=== PATIENT | female | born 1970 | race Caucasian/White ===

== ENCOUNTER 2016-11-21 21:29 | Emergency (ER) | payer MEDICAID ==
[2016-11-21] MEDS ORDERED: KETOROLAC 30 MG/ML VIAL IM ONE (21:43)
--- NOTE | 2016-11-21 21:47 | Emergency Department Record ---
History of Present Illness - General Chief complaint: Pain Stated complaint: LEFT HIP PAIN Time Seen by Provider: 11/21/16 21:37 Source: Patient Mode of Arrival: Ambulatory Limitations: No limitations - History of Present Illness Initial comments: The patient is here due to L hip pain for about 10 days. She has a L hip replacement from about 11 years ago and has not had any issues with it. Now about 10 days ago it started hurting. The pain then did resolve after a few days. Now 2 days ago the pain returned. It increases with weight bearing and ROM. The patient denies any leg numbness, or weakness and also denies any trauma or fall. She believes she may be having an issue with her old replacement and would like an xray. MD Complaint: Joint pain Onset/Timin -: Days(s) Location: Left, Other History of Same: No Radiation: None Severity scale (1-10): 4 Quality: Stabbing Consistency: Constant, Getting worse Improves with: Movement Worsens with: Palpation, Other - Related Data Previous Rx's Medication Instructions Recorded Naproxen [Naprosyn] 500 mg PO BID #20 tablet. 11/21/16 Allergies Allergy/AdvReac Type Severity Reaction Status Date / Time No Known Drug Allergies Allergy Verified 02/24/16 11:21 Travel Screening - Travel/Exposure Within Last 30 Days Have you traveled within the last 30 days?: No Review of Systems Constitutional: Denies: Chills, Fever Past Medical History - SOCIAL HISTORY Smoking Status: Never smoker Alcohol Use: None Drug Use: None - RESPIRATORY Hx Respiratory Disorders: No - CARDIOVASCULAR Hx Cardio Disorders: No - NEURO Hx Neuro Disorders: No - GI Hx GI Disorders: No - ENDOCRINE Hx Endocrine Disorders: No - MUSCULOSKELETAL Hx Musculoskeletal Disorders: No - PSYCH Hx Psych Problems: No - HEMATOLOGY/ONCOLOGY Hx Hematology/Oncology Disorders: No Family Medical History Any Significant Family History?: Yes Physical Exam - General General Appearance: Alert, Oriented x3, Cooperative, No acute distress - Head Head exam: Atraumatic, Normocephalic, Normal inspection - Eye Eye exam: Normal appearance - Respiratory Respiratory exam: Normal lung sounds bilaterally. negative: Respiratory distress - Cardiovascular Cardiovascular Exam: Regular rate, Normal rhythm, Normal heart sounds - Extremities Extremities exam: Normal inspection (There is a well healed L hip replacement scar with no swelling, bruising, or erythema present.), Normal capillary refill , Tenderness (There is mild tenderness to the L hip on deep palpation.). negative: Full ROM (There is decreased ROM of the L hip due to pain. ), Joint swelling - Neurological Neurological exam: Alert. negative: Motor sensory deficit - Skin Skin exam: negative: Rash Course Vital Signs 11/21/16 21:33 Temperature 98.3 F Pulse Rate [ 94 H Pulse Ox Probe] Respiratory 20 Rate Blood Pressure 128/81 [Left Arm] Pulse Ox 97 - Reevaluation(s) Reevaluation #1: I did discuss the xray findings with the patient and the need for F/U with Ortho. The patient states her hip replacement prosthesis is on recall also which may be why she is now having issues with it. She is to limit her walking and use her cane when needed and see an Ortho doc ERIC. 11/21/16 22:26 Medical Decision Making - Data Complexity MDM Data: X-Ray Ordered and/or Reviewed - Radiology Data Radiology results: Report reviewed (L Hip: No definite acute changes to the hip joint. Greater Troch. fragment fx prob old.with proximal fx fragment displaced 9 mm.) Disposition Disposition: Discharge Clinical Impression: Hip pain, left Disposition: Home, Self-Care Condition: (1) Good Instructions: Hip Pain (ED) Additional Instructions: Please use Naprosyn for pain and use your cane at home for walking. Please see an Orthopedic doctor ERIC for recheck of the hip and further evaluation. Return to the ER if worse. Prescriptions: Naproxen [Naprosyn] 500 mg PO BID #20 tablet. Referrals: [facility] [Provider Group] LAURA FITZPATRICK [DOCTOR OF OSTEOPATH] - Forms: Patient Portal Access Time of Disposition: 22:26 Quality - Quality Measures Quality Measures: N/A - Blood Pressure Screening View Details: Yes Does Patient Have Any of the Following: No Blood Pressure Classification: Pre-Hypertensive BP Reading Systolic Measurement: 128 Diastolic Measurement: 81 Screening for High Blood Pressure: < Pre-Hypertensive BP, F/U Documented > [ G8950] Pre-Hypertensive Follow-up Interventions: Referral to alternative/primary care provider.
--- NOTE | 2016-11-23 07:34 | RADIOLOGY REPORT ---
EXAM: LEFT HIP HISTORY: ACUTE LEFT HIP PAIN FOR FIVE DAYS. NO KNOWN TRAUMA. PRIOR LEFT HIP ARTHROPLASTY. TECHNIQUE: An AP view of the pelvis is obtained as well as AP and frog leg lateral views of the left hip. Comparison: None. Encounter: Initial. FINDINGS: Left hip arthroplasty changes are present. 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 Given lack of prior examination it is indeterminate whether positioning of the prosthetic acetabular cup is stable. To the extent visualized, the prosthetic components appear well seated. There is evidence of a displaced greater trochanter fracture. The smaller proximal fracture fragment measures 1.9 x 2.6 cm. This is age indeterminate. No other evidence of acute fracture nor dislocation. There are mild degenerative changes of the right hip. IMPRESSION: LEFT HIP ARTHROPLASTY CHANGES, DISCUSSED ABOVE. DISPLACED GREATER TROCHANTER FRACTURE WITH THE PROXIMAL FRACTURE FRAGMENT SUPERIORLY DISPLACED BY 9 MM. THIS FRACTURE IS AGE INDETERMINATE THOUGH PROBABLY CHRONIC. NO OTHER EVIDENCE OF ACUTE FRACTURE NOR DISLOCATION. MILD DEGENERATIVE CHANGES OF THE RIGHT HIP. JOB NUMBER: [id number] [facility]
== END 2016-11-21 22:33 | disposition home or self-care (01) ==
LOC: ER 21:29
DX: M25.552 Pain in left hip (principal); Z96.642 Presence of left artificial hip joint
CPT/HCPCS: 99283 ×2; 96372; 73502; J1885

== ENCOUNTER 2017-07-06 11:14 | Emergency (ER) | payer MEDICAID ==
--- NOTE | 2017-07-06 11:36 | Emergency Department Record ---
History of Present Illness - General Chief complaint: Pain Stated complaint: LEFT HIP PAIN Time Seen by Provider: 07/06/17 11:21 Source: Patient Mode of Arrival: Ambulatory Limitations: No limitations - History of Present Illness Initial comments: The patient has a hx of chronic L hip pain for months and years and has had a RODNEY in the past that has now been recalled. She now is having increased pain and limping over the last few days to the L hip. There has been no reported fever, chills, trauma, weakness, or injury. The patient does have an appointment with an Orthopedic doctor in September at [facility] but would like to have an xray and a Motrin 800 script today. MD Complaint: Joint pain Onset/Timin -: Days(s) Location: Left, Other History of Same: No Radiation: Distal Severity scale (1-10): 6 Quality: Aching, Sharp Consistency: Constant Improves with: Nothing Worsens with: Walking, Weight bearing Associated Symptoms: Denies other symptoms - Related Data Previous Rx's Medication Instructions Recorded Ibuprofen [Motrin] 800 mg PO TID PRN #20 tab 07/06/17 Allergies Allergy/AdvReac Type Severity Reaction Status Date / Time No Known Drug Allergies Allergy Unverified 03/14/17 13:12 Travel Screening - Travel/Exposure Within Last 30 Days Have you traveled within the last 30 days?: No Review of Systems Constitutional: Denies: Chills, Fever Past Medical History - SOCIAL HISTORY Smoking Status: Never smoker Alcohol Use: None Drug Use: None - RESPIRATORY Hx Respiratory Disorders: No - CARDIOVASCULAR Hx Cardio Disorders: No - NEURO Hx Neuro Disorders: No - GI Hx GI Disorders: No - Hx Genitourinary Disorders: No - ENDOCRINE Hx Endocrine Disorders: No - MUSCULOSKELETAL Hx Musculoskeletal Disorders: No - PSYCH Hx Psych Problems: No - HEMATOLOGY/ONCOLOGY Hx Hematology/Oncology Disorders: No Family Medical History Any Significant Family History?: No Physical Exam - General General Appearance: Alert, Oriented x3, Cooperative, No acute distress - Head Head exam: Atraumatic, Normocephalic, Normal inspection - Eye Eye exam: Normal appearance, PERRL - Respiratory Respiratory exam: Normal lung sounds bilaterally. negative: Respiratory distress - Cardiovascular Cardiovascular Exam: Regular rate, Normal rhythm, Normal heart sounds - GI/Abdominal GI/Abdominal exam: Soft, Normal bowel sounds. negative: Tenderness - Extremities Extremities exam: Normal inspection, Normal capillary refill, Other (The L lower leg is NVI with normal distal pulses.). negative: Full ROM (There is decreased full ROM of the L hip due to mild pain.), Joint swelling, Tenderness Course Vital Signs 07/06/17 11:17 Temperature 97.9 F Pulse Rate 72 Respiratory 20 Rate Blood Pressure 125/83 Pulse Ox 99 - Reevaluation(s) Reevaluation #1: I explained the xray results to the patient and the need for F/U. 07/06/17 12:16 Medical Decision Making - Data Complexity MDM Data: X-Ray Ordered and/or Reviewed - Radiology Data Radiology results: Report reviewed (L Hip: Possible increased acetabular sclerosis and increased L hip greater trochanter proximal fx.) Disposition Disposition: Discharge Clinical Impression: Hip pain, left Disposition: Home, Self-Care Condition: (2) Stable Instructions: Hip Pain (ED) Additional Instructions: Please take the Motrin for pain and use your home crutches if needed. Please try to have your Orthopedic appointment moved up if possible. Return to the ER for any worsening symptoms. Prescriptions: Ibuprofen [Motrin] 800 mg PO TID PRN #20 tab PRN Reason: Pain Forms: Patient Portal Access Time of Disposition: 12:14 Quality - Quality Measures Quality Measures: N/A - Blood Pressure Screening View Details: Yes Does Patient Have Any of the Following: No Blood Pressure Classification: Pre-Hypertensive BP Reading Systolic Measurement: 125 Diastolic Measurement: 83 Screening for High Blood Pressure: < Pre-Hypertensive BP, F/U Documented > [ G8950] Pre-Hypertensive Follow-up Interventions: Referral to alternative/primary care provider.
--- NOTE | 2017-07-07 11:39 | RADIOLOGY REPORT ---
EXAM: LEFT HIP WITH AP PELVIS HISTORY: HISTORY OF LEFT RODNEY. INCREASING PAIN THE LAST FEW DAYS. TECHNIQUE: AP view of the pelvis and AP and lateral views of the left hip were obtained. Comparison: Left hip series 11/21/16. FINDINGS: The patient is again seen to be postop left RODNEY. 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 Previously described displaced greater trochanter fracture is again seen with greater superior displacement of the fracture fragments. In addition to the protrusio acetabuli the acetabular component appears located somewhat superiorly relative to the [place] acetabular socket, but this was the case previously as well. Comparison with any earlier studies would be useful to see if there has been migration at some point of the acetabular components superiorly as well. There has probably been a fracture of the central acetabulum with some healing in the interval with greater spurring in this region since 11/21/16. As visualized today no definite acute fracture or dislocation of the left hip evident. IMPRESSION: 1. POSTOP LEFT RODNEY. 2. 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 NO AKIRA DISLOCATION OF THE LEFT HIP EVIDENT. 3. PRIOR DISPLACED GREATER TROCHANTER FRACTURE FRAGMENT AGAIN SEEN WITH SLIGHTLY GREATER SUPERIOR DISPLACEMENT COMPARED TO THE PRIOR STUDY. 4. SOME DEFORMITY OF THE CENTRAL ACETABULUM LIKELY REPRESENTING A NONACUTE FRACTURE WITH SOME HEALING WHICH IS MORE PRONOUNCED THAN ON 11/21/16. A DEFINITE ACUTE FRACTURE LINE IS NOT SEEN ALTHOUGH A SUBTLE FRACTURE WOULD BE DIFFICULT TO EXCLUDE CENTRALLY IN THE ACETABULUM PARTICULARLY WITH THE OVERLYING METALLIC HIP ARTHROPLASTY PRESENT. JOB NUMBER: [id number] [facility]
== END 2017-07-06 12:26 | disposition home or self-care (01) ==
LOC: ER 11:14
DX: G89.29 Other chronic pain (principal); M25.552 Pain in left hip; Z96.642 Presence of left artificial hip joint
CPT/HCPCS: 99283

== ENCOUNTER 2018-08-21 12:06 | Emergency (ER) | payer MEDICAID ==
--- NOTE | 2018-08-21 12:29 | Emergency Department Record ---
History of Present Illness - General Chief complaint: ENT Stated complaint: EAR PAIN RT Time Seen by Provider: 08/21/18 12:19 Source: Patient Mode of Arrival: Ambulatory Limitations: No limitations - History of Present Illness Initial comments: The patient is here due to a cough with colored sputum and also R ear wax impaction. The patient has a hx of cerumen impaction and did flush her R ear out after it became plugged last week. She did get a lot of wax out but still is unable to hear out of the R ear. MD complaint: Other Onset/Timin -: Days(s) Location: R ear Severity scale (1-10): 4 Quality: Aching Consistency: Constant Improves with: None Worsens with: None Associated Symptoms: Cough - Related Data Previous Rx's Medication Instructions Recorded Azithromycin [Zithromax] 250 mg PO ASDIR #6 tab 08/21/18 Allergies Allergy/AdvReac Type Severity Reaction Status Date / Time No Known Drug Allergies Allergy Unverified 08/10/18 11:33 Travel Screening - Travel/Exposure Within Last 30 Days Have you traveled within the last 30 days?: No Review of Systems Constitutional: Denies: Chills, Fever Eyes: Denies: Eye discharge ENT: Denies: Congestion Respiratory: Reports: Cough. Denies: Dyspnea Past Medical History - SOCIAL HISTORY Smoking Status: Never smoker - RESPIRATORY Hx Respiratory Disorders: No - CARDIOVASCULAR Hx Cardio Disorders: No - NEURO Hx Neuro Disorders: No - GI Hx GI Disorders: No - Hx Genitourinary Disorders: No - ENDOCRINE Hx Endocrine Disorders: No - MUSCULOSKELETAL Hx Musculoskeletal Disorders: No - PSYCH Hx Psych Problems: No - HEMATOLOGY/ONCOLOGY Hx Hematology/Oncology Disorders: No Family Medical History Any Significant Family History?: Yes Physical Exam - General General Appearance: Alert, Oriented x3, Cooperative, No acute distress - Head Head exam: Atraumatic, Normocephalic, Normal inspection - Eye Eye exam: Normal appearance, PERRL, EOMI - ENT ENT exam: negative: TM's normal bilaterally (The L TM is normal but the R TM is not visualized due to cerumen being impacted up against the R TM. There is no canal swelling, tenderness, erythema or edema.) Throat exam: Tonsillar erythema. negative: Normal inspection, Tonsillomegaly - Neck Neck exam: Normal inspection, Full ROM. negative: Lymphadenopathy, Tenderness - Respiratory Respiratory exam: Normal lung sounds bilaterally. negative: Respiratory distress - Cardiovascular Cardiovascular Exam: Regular rate, Normal rhythm, Normal heart sounds - GI/Abdominal GI/Abdominal exam: Soft, Normal bowel sounds. negative: Tenderness - Extremities Extremities exam: Normal inspection, Full ROM, Normal capillary refill. negative: Tenderness Course Vital Signs 08/21/18 12:09 Temperature 98.4 F Pulse Rate 108 H Respiratory 20 Rate Blood Pressure 138/83 Pulse Ox 98 - Reevaluation(s) Reevaluation #1: Due to the wax being right up against the R TM I did discuss the need for referral to ENT with the patient for wax removal. 08/21/18 12:34 Disposition Disposition: Discharge Clinical Impression: Bronchitis, Impacted cerumen of right ear Disposition: Home, Self-Care Condition: (2) Stable Instructions: Acute Bronchitis (ED) Additional Instructions: Please take the Zpak as directed and please see [facility]NT at [phone] to have the wax removed from the R ear. Please see your family doctor for recheck this week if not better. Prescriptions: Azithromycin [Zithromax] 250 mg PO ASDIR #6 tab Forms: Patient Portal Access Time of Disposition: 12:28 Quality - Quality Measures Quality Measures: N/A - Blood Pressure Screening View Details: Yes Does Patient Have Any of the Following: No Blood Pressure Classification: Pre-Hypertensive BP Reading Systolic Measurement: 138 Diastolic Measurement: 83 Screening for High Blood Pressure: < Pre-Hypertensive BP, F/U Documented > [G8950] Pre-Hypertensive Follow-up Interventions: Referral to alternative/primary care provider.
== END 2018-08-21 12:39 | disposition home or self-care (01) ==
LOC: ER 12:06
DX: J20.9 Acute bronchitis, unspecified (principal); H61.21 Impacted cerumen, right ear
CPT/HCPCS: 99282